=== PATIENT | male | born 1990 | race Hispanic/Latino ===

== ENCOUNTER 2017-01-01 08:48 | Emergency (ER) | payer SELFPAY ==
[~2017-01-01] VITALS: Ht 177.8 cm; Wt 122.7 kg
[~2017-01-01 08:48] MED LIST: COMPAZINE5 MG/TAB PO; DARVOCET-N 100100 MG OR; IBUPROFEN600 MG PO; LORTAB5 PO; NO MEDS; NORCO1 TA1 PO; PREVACID30 M1 PO; PROTONIX40 MG PO; ZOFRAN ODT4 MG OR; ZOFRAN ODT8 MG PO; ZOFRAN4 MG/TAB PO
[2017-01-01 09:40] LABS: HEMATOCRIT 45.5 % (39.0-50.0); IMMATURE GRANULOCYTES 0.4 % (0.0-1.0); MEAN CELL VOLUME 88.2 fL CALC (80.0-100.0); MEAN CORPUSCULAR HGB 29.1 pG CALC (26.0-32.0); NEUT# 9.2 thou/uL (1.82-7.42); RED BLOOD COUNT 5.16 mill/uL (4.70-6.10); RED CELL DISTRI WIDTH 12.4 % (11.5-15.5)
[2017-01-01 09:56] LABS: ALBUMIN 4.6 g/dL (3.2-5.0); ALKALINE PHOSPHATASE 147 u/l (38-126); AMYLASE 49 u/l (30-110); ANION GAP 17 (6-22 (CALC)); BILIRUBIN, TOTAL 1.1 mg/dL (0.0-1.4); BUN 13 mg/dL (9-20); BUN/CREATININE RATIO 16 (12-20 (CALC)); CALCIUM 9.5 mg/dL (8.4-10.2); CARBON DIOXIDE 23 mmol/l (22-30); CHLORIDE 104 mmol/l (95-108); CREATININE 0.8 mg/dL (0.7-1.3); GFR > 60 ML/MIN (>=60 (CALC)); GFR FOR AFR.AMER. > 60 ML/MIN (>=60 (CALC)); GLUCOSE 95 mg/dL (75-110); LIPASE 39 u/l (23-300); POTASSIUM 3.9 mmol/l (3.5-5.1); SGOT/AST 23 u/l (17-59); SGPT/ALT 41 u/l (21-72); SODIUM 140 mmol/l (137-146); TOTAL PROTEIN 8.9 g/dL (6.3-8.2)
[2017-01-01 14:02] VITALS: BP 135/79
== END 2017-01-01 14:14 | disposition home or self-care (01) | DRG 392 ==
LOC: ED 08:48
PROVIDERS: Emergency Medicine
DX: K52.9 Noninfective gastroenteritis and colitis, unspecified (principal); R11.2 Nausea with vomiting, unspecified; R10.32 Left lower quadrant pain; R10.31 Right lower quadrant pain
CPT/HCPCS: Q9967

== ENCOUNTER 2022-09-15 16:18 | Emergency (ER) | payer SELFPAY ==
[~2022-09-15] VITALS: Ht 177.8 cm; Wt 114.0 kg
[2022-09-15] VITALS (10 sets, daily range): BP systolic 119–135; BP diastolic 74–89
[2022-09-15] MEDS ORDERED: AMOX/K CLAV875 M1 PO (19:11)
== END 2022-09-15 19:39 | disposition home or self-care (01) | DRG 605 ==
LOC: ED 16:18
DX: S70.371A Other superficial bite of right thigh, initial encounter (principal); W54.0XXA Bitten by dog, initial encounter